=== PATIENT | female | born 1975 | race Caucasian/White ===

== ENCOUNTER 2018-12-29 13:29 | Day surgery (SDC) | payer OTHER ==
[~2018-12-29 13:29] MED LIST: ALPR.5 PO
[2018-12-29] MEDS ORDERED: SOLU-MEDRO1000 MG/8 IV (14:41)
[2018-12-29] MEDS ORDERED: Hair, Skin & N1 EACH PO (14:42)
[2018-12-29] MEDS ORDERED: CHOL10002 (14:43)
== END 2018-12-29 15:48 | disposition home or self-care (01) ==
LOC: ATC 13:29
DX: G35 Multiple sclerosis (principal); R25.2 Cramp and spasm; K59.00 Constipation, unspecified
CPT/HCPCS: 96365; J2930

== ENCOUNTER 2018-12-30 07:43 | Day surgery (SDC) | payer OTHER ==
[~2018-12-30 07:43] MED LIST changes: +CHOL10002; +Hair, Skin & N1 EACH PO; +SOLU-MEDRO1000 MG/8 IV
== END 2018-12-30 10:58 | disposition home or self-care (01) ==
LOC: ATC 07:43
DX: G35 Multiple sclerosis (principal); R25.2 Cramp and spasm
CPT/HCPCS: 96365; J2930

== ENCOUNTER 2018-12-31 10:24 | Day surgery (SDC) | payer OTHER | END 2018-12-31 11:30 | disposition home or self-care (01) | LOC: ATC 10:24 | DX: G35 Multiple sclerosis (principal); R25.2 Cramp and spasm; K59.00 Constipation, unspecified; I10 Essential (primary) hypertension | CPT/HCPCS: 96365; J2930 ==

== ENCOUNTER 2019-01-02 00:36 | Day surgery (SDC) | payer OTHER | END 2019-01-02 12:10 | disposition home or self-care (01) | LOC: ATC 00:36 | DX: G35 Multiple sclerosis (principal); I10 Essential (primary) hypertension; R25.2 Cramp and spasm; K59.00 Constipation, unspecified | CPT/HCPCS: J2930 ==

== ENCOUNTER → 2019-10-13 | Outpatient (CLI) | payer OTHER ==
[2019-10-16 15:07] LABS: HPV 16 Negative (Negative); HPV 18 Negative (Negative); HPV OTHER HR TYPES Negative (Negative)
== END ==
LOC: LAB 11:01 → LAB SHORT 11:01
PROVIDERS: Advanced Practice Midwife
DX: Z01.419 Encounter for gynecological examination (general) (routine) without abnormal findings (principal)
CPT/HCPCS: 87624; G0123

== ENCOUNTER → 2022-02-10 | Outpatient (CLI) | payer OTHER ==
[2022-02-10 17:33] LABS: Source, Urine Clean Catch
[2022-02-10 20:19] LABS: Appearance, Urine Clear (Clear); Bilirubin, Urine Neg (Neg); Blood, Urine 1+ (Neg); Color, Urine Yellow (P-Yellow); Glucose Qualitative, Urine Neg (Neg); Ketones, Urine Neg (Neg); Leukocyte Esterase, Urine 2+ (Neg); Nitrite, Urine Neg (Neg); Protein, Urine Neg (Neg); Urobilinogen, Urine NORM (Normal)
[2022-02-10 21:09] LABS: Bacteria Mod /hpf; Calcium Oxalate Crystals Few /hpf; Squamous Epithelial Cells Few /hpf (Few)
== END | disposition home or self-care (01) ==
LOC: LAB SHORT 17:30
PROVIDERS: Obstetrics & Gynecology
DX: R35.0 Frequency of micturition (principal)
CPT/HCPCS: 81001; 87086

== ENCOUNTER → 2024-04-13 | Outpatient (CLI) | payer OTHER | LOC: LAB 16:04 → LAB SHORT 16:04 | DX: R10.9 Unspecified abdominal pain (principal) | CPT/HCPCS: 83690 ==

== ENCOUNTER → 2024-07-26 | Outpatient (CLI) | payer OTHER ==
[2024-08-04 11:26] LABS: HPV HIGH RISK BY TMA Not Detected; HPV SOURCE Cervical
== END ==
LOC: LAB SHORT 13:48 → LAB 13:48
PROVIDERS: Obstetrics & Gynecology
DX: Z01.419 Encounter for gynecological examination (general) (routine) without abnormal findings (principal)
CPT/HCPCS: 87624; G0123